=== PATIENT | female | born 2000 | race Hispanic/Latino ===

== ENCOUNTER 2021-05-12 17:49 | Inpatient (IN) | payer MEDICAID, OTHER ==
[~2021-05-12] VITALS: Ht 157.5 cm; Wt 130.2 kg
[2021-05-12 17:51] VITALS: BP 134/68
[2021-05-12 18:57] LABS: BASOPHILS % (AUTO) 0.2 % (0.0-5.0); LYMPHOCYTES % (AUTO) 10.6 % (21.0-51.0); MEAN CORPUSCULAR HEMOGLOBIN 25.3 pg (27.0-33.0); MEAN CORPUSCULAR HGB CONC 31.8 g/dL (32.0-36.0); MEAN CORPUSCULAR VOLUME 79.3 fL (79-99); MONOCYTES % (AUTO) 4.9 % (3.0-13.0); NEUTROPHILS % (AUTO) 83.7 % (40.0-77.0); PLATELET COUNT (AUTO) 334 K/uL (130-400); RED BLOOD CELL COUNT(AUTO) 4.79 MIL/uL (4.00-5.50); RED CELL DISTRIBUTION WIDTH 14.4 % (11.0-15.5); WHITE BLOOD COUNT (AUTO) 9.7 K/uL (4.8-10.8)
[2021-05-12 19:02] LABS: ABG BASE EXCESS 5.8 mmol/L (-2.0-3.0); ABG HCO3 28.7 mmol/L (21.0-28.0); ABG OXYGEN SATURATION 88.9 % (95.0-99.0); ABG PCO2 36 mmHg (32-45)
[2021-05-12 19:41] LABS: INR 1.05 (0.85-1.15); PROTHROMBIN TIME 11.4 SEC (9.6-11.6)
[2021-05-12 19:42] LABS: PARTIAL THROMBOPLASTIN TIME 28.3 SEC (26.3-35.5)
[2021-05-12 19:44] LABS: ALBUMIN 2.6 g/dL (3.5-5.0); BILIRUBIN,TOTAL 0.5 mg/dL (0.2-1.0); TOTAL PROTEIN, SERUM 7.9 g/dL (6.0-8.3)
[2021-05-12 19:46] LABS: POTASSIUM 2.9 mmol/L (3.5-5.1)
[2021-05-12] MEDS ORDERED: KCL 20 MEQ ERTAB PO ONE (20:30)
[2021-05-12 20:50] LABS: APPEARANCE,URINE Cloudy (CLEAR); BILIRUBIN,URINE Small (NEGATIVE); COLOR,URINE Dark Yellow (YELLOW); GLUCOSE, URINE (UA) Negative (NEGATIVE); KETONES,URINE 15 mg/dL (NEGATIVE); LEUKOCYTE ESTERASE ,URINE Small (NEGATIVE); NITRATE,URINE Negative (NEGATIVE); OCCULT BLOOD,URINE Large (NEGATIVE); PH,URINE 6.5 (5.0-8.0); PROTEIN,URINE POS 2+ mg/dL (NEGATIVE)
[2021-05-12 21:01] LABS: BACTERIA,URINE Moderate /HPF (None Seen); RBC,URINE 51-100 /HPF (0-1)
[2021-05-12 21:02] LABS: MUCUS,URINE Few LPF (None Seen); SQUAMOUS EPITHELIAL CELL,UR Moderate /HPF (0-2)
[2021-05-12 22:30] VITALS: BP 123/69
[2021-05-12] MEDS ORDERED: FAMOTIDINE 20MG VIAL IV ONE ×2 (22:30→23:47)
[2021-05-12] MEDS ORDERED: CEFTRIAXONE 1G VIAL 1 GM in 0.9%NACL 100ML 100 ML IV ONE (22:30)
[2021-05-12] MEDS ORDERED: DEXAMETHASONE SOD PHOSPHATE 4 MG/ML 1ML VIAL IVP ONE (22:30)
[2021-05-12] MEDS ORDERED: NITROGLYCERIN 0.4 MG SL TAB SL PRN (23:30)
[2021-05-12] MEDS ORDERED: 0.9% NACL 250ML IVPB SCH (23:30)
[2021-05-12] MEDS ORDERED: ACETAMINOPHEN 325 MG TAB PO PRN ×2 (23:30)
[2021-05-12] MEDS ORDERED: ONDANSETRON 4MG INJ IV PRN (23:30)
[2021-05-12] MEDS ORDERED: ERGOCALCIFEROL (VITAMIN D2) 50,000 UNIT CAPSULE PO ONE (23:30)
[2021-05-12] MEDS ORDERED: CEFTRIAXONE 1G VIAL ONE (23:47)
[2021-05-12] MEDS ORDERED: DEXAMETHASONE SOD PHOSPHATE 4 MG/ML 1ML VIAL ONE (23:47)
[2021-05-12] MEDS: AZITHROMYCIN 500MG+NS 250ML IV SCH (23:48)
[2021-05-13] VITALS (8 sets, daily range): BP systolic 117–146; BP diastolic 56–84
[2021-05-13] MEDS: IPRATROPIUM/ALBUTEROL SULFATE 3 ML SOLUTION IH SCH ×7 (00:01→22:44)
[2021-05-13 00:37] LABS: CREATINE KINASE, TOTAL 123 U/L (21-232); LACTATE DEHYDROGENASE 437 U/L (81-234); MYOGLOBIN 39 ng/mL (10-92); TROPONIN I < 0.04 ng/mL (0.00-0.06)
[2021-05-13] MEDS ORDERED: IOHEXOL-350 75 ML VIAL IV ONE (03:16)
[2021-05-13] MEDS ORDERED: FUROSEMIDE 40MG VIAL IV ONE (04:00)
[2021-05-13] MEDS ORDERED: SODIUM CHLORIDE 3% FOR INHALATION 4 ML/AMP VIAL.NEB IH ONE (06:35)
[2021-05-13 06:51] LABS: BASOPHILS % (AUTO) 0.1 % (0.0-5.0); EOSINOPHILS % (AUTO) 0.2 % (0.0-8.0); HEMATOCRIT 34.8 % (36-48); LYMPHOCYTES % (AUTO) 10.4 % (21.0-51.0); MEAN CORPUSCULAR HEMOGLOBIN 24.7 pg (27.0-33.0); MEAN CORPUSCULAR HGB CONC 31.6 g/dL (32.0-36.0); MEAN CORPUSCULAR VOLUME 78.2 fL (79-99); MONOCYTES % (AUTO) 5.5 % (3.0-13.0); NEUTROPHILS % (AUTO) 83.4 % (40.0-77.0); PLATELET COUNT (AUTO) 339 K/uL (130-400); RED BLOOD CELL COUNT(AUTO) 4.45 MIL/uL (4.00-5.50); RED CELL DISTRIBUTION WIDTH 14.5 % (11.0-15.5); WHITE BLOOD COUNT (AUTO) 9.7 K/uL (4.8-10.8)
[2021-05-13 07:05] LABS: ALBUMIN 2.6 g/dL (3.5-5.0); BILIRUBIN,TOTAL 0.5 mg/dL (0.2-1.0); POTASSIUM 3.1 mmol/L (3.5-5.1); TOTAL PROTEIN, SERUM 7.7 g/dL (6.0-8.3)
[2021-05-13 07:19] LABS: CRP QUANTITATIVE 166.1 mg/L (0.00-9.0)
[2021-05-13] MEDS ORDERED: ACETYLCYSTEINE 600 MG CAPSULE PO SCH (09:00)
[2021-05-13] MEDS: ENOXAPARIN SODIUM 40 MG/0.4 ML SYRINGE SQ SCH (09:00)
[2021-05-13] MEDS ORDERED: ASCORBIC ACID 500 MG TAB PO SCH (09:00)
[2021-05-13] MEDS ORDERED: ZINC SULFATE 220 CAPSULE PO SCH (09:00)
[2021-05-13] MEDS ORDERED: [UNRECOGNIZED DRUG - REMARK] MISC SCH (11:00)
[2021-05-13] MEDS: FAMOTIDINE 20MG TAB PO SCH ×2 (11:19→20:04)
[2021-05-13] MEDS ORDERED: [UNRECOGNIZED DRUG - OTHER] IV SCH (11:30)
[2021-05-13] MEDS ORDERED: TOCILIZUMAB IV SCH (11:30)
[2021-05-13] MEDS ORDERED: PHARMACY COMMUNICATION MISC SCH (11:30)
[2021-05-13] MEDS ORDERED: KCL 20 MEQ ERTAB PO PRN (12:00)
[2021-05-13] MEDS ORDERED: POTASSIUM CHLORIDE 20MEQ/100ML 100 ML IV PRN ×2 (12:00)
[2021-05-13] MEDS ORDERED: LIDOCAINE HCL-MPF 1% 2ML VIAL IV PRN (12:00)
[2021-05-13] MEDS ORDERED: BENZONATATE 100 MG CAPSULE PO PRN (12:00)
[2021-05-13] MEDS ORDERED: GUAIFENESIN-DM 200/20 MG 10 ML PO PRN (12:00)
[2021-05-13] MEDS ORDERED: GUAIFENESIN-CODEINE 5 ML SYRUP PO PRN (12:00)
[2021-05-13] MEDS ORDERED: PHARMACY COMMUNICATION**REMDESIVIR ORDER MISC SCH (13:00)
[2021-05-13] MEDS ORDERED: COMPOUND IV REFRIGERATED 1 EACH IVSOLN MISC PRN (14:30)
[2021-05-13] MEDS ORDERED: REMDESIVIR (EUA) 520 200 MG in 0.9% NACL 250ML 250 ML IV SCH (15:00)
[2021-05-13] MEDS: POTASSIUM CHLORIDE 10% ELIXIR 20 MEQ/15 ML UDCUP PO PRN ×2 (17:03→21:46)
[2021-05-13] MEDS: DEXAMETHASONE SOD PHOSPHATE 4 MG/ML 1ML VIAL IVP SCH (20:04)
[2021-05-13] MEDS: CEFTRIAXONE 2GM VIAL IVP SCH (20:04)
[2021-05-13] MEDS ORDERED: 0.9% NACL 250ML 250 ML ONE (22:54)
[2021-05-13] MEDS: AZITHROMYCIN 500MG+NS 250ML IV SCH (22:57)
[2021-05-14] MEDS: IPRATROPIUM/ALBUTEROL SULFATE 3 ML SOLUTION IH SCH ×6 (02:31→23:03)
[2021-05-14 04:00] VITALS: BP 103/59
[2021-05-14 04:04] LABS: BASOPHILS % (AUTO) 0.2 % (0.0-5.0); HEMATOCRIT 34.1 % (36-48); LYMPHOCYTES % (AUTO) 8.1 % (21.0-51.0); MEAN CORPUSCULAR HEMOGLOBIN 24.9 pg (27.0-33.0); MEAN CORPUSCULAR HGB CONC 31.7 g/dL (32.0-36.0); MEAN CORPUSCULAR VOLUME 78.8 fL (79-99); MONOCYTES % (AUTO) 1.7 % (3.0-13.0); NEUTROPHILS % (AUTO) 89.5 % (40.0-77.0); PLATELET COUNT (AUTO) 391 K/uL (130-400); RED BLOOD CELL COUNT(AUTO) 4.33 MIL/uL (4.00-5.50); RED CELL DISTRIBUTION WIDTH 14.5 % (11.0-15.5); WHITE BLOOD COUNT (AUTO) 6.7 K/uL (4.8-10.8)
[2021-05-14 04:37] LABS: ALBUMIN 2.5 g/dL (3.5-5.0); BILIRUBIN,TOTAL 0.3 mg/dL (0.2-1.0); CREATININE 0.8 mg/dL (0.5-1.5); CRP QUANTITATIVE 136.4 mg/L (0.00-9.0); POTASSIUM 3.5 mmol/L (3.5-5.1); TOTAL PROTEIN, SERUM 7.6 g/dL (6.0-8.3)
[2021-05-14 07:10] VITALS: BP 135/59
[2021-05-14] MEDS: REMDESIVIR LABS MISC SCH (07:56)
[2021-05-14] MEDS ORDERED: PHARMACY COMMUNICATION MISC SCH ×2 (09:30→10:30)
[2021-05-14] MEDS: FAMOTIDINE 20MG TAB PO SCH ×2 (09:53→20:24)
[2021-05-14] MEDS: ENOXAPARIN SODIUM 40 MG/0.4 ML SYRINGE SQ SCH (09:53)
[2021-05-14] MEDS ORDERED: TOCILIZUMAB 400MG VIAL 800 MG in 0.9%NACL 100ML 100 ML IV SCH (10:30)
[2021-05-14] MEDS: POTASSIUM CHLORIDE 10% ELIXIR 20 MEQ/15 ML UDCUP PO PRN (10:40)
[2021-05-14 11:00] VITALS: BP 118/56
[2021-05-14 16:00] VITALS: BP 125/66
[2021-05-14] MEDS: REMDESIVIR (EUA) 520 100 MG in 0.9% NACL 250ML 250 ML IV SCH (16:20)
[2021-05-14 20:00] VITALS: BP 131/71
[2021-05-14] MEDS: CEFTRIAXONE 2GM VIAL IVP SCH (20:24)
[2021-05-14] MEDS: DEXAMETHASONE SOD PHOSPHATE 4 MG/ML 1ML VIAL IVP SCH (20:24)
[2021-05-14] MEDS: AZITHROMYCIN 500MG+NS 250ML IV SCH (23:30)
[2021-05-15] VITALS (7 sets, daily range): BP systolic 112–150; BP diastolic 50–83
[2021-05-15] MEDS: IPRATROPIUM/ALBUTEROL SULFATE 3 ML SOLUTION IH SCH ×6 (02:32→22:43)
[2021-05-15 04:32] LABS: BASOPHILS % (AUTO) 0.2 % (0.0-5.0); HEMATOCRIT 33.6 % (36-48); LYMPHOCYTES % (AUTO) 9.8 % (21.0-51.0); MEAN CORPUSCULAR HEMOGLOBIN 24.8 pg (27.0-33.0); MEAN CORPUSCULAR HGB CONC 31.3 g/dL (32.0-36.0); MEAN CORPUSCULAR VOLUME 79.4 fL (79-99); MONOCYTES % (AUTO) 2.3 % (3.0-13.0); NEUTROPHILS % (AUTO) 86.9 % (40.0-77.0); PLATELET COUNT (AUTO) 429 K/uL (130-400); RED BLOOD CELL COUNT(AUTO) 4.23 MIL/uL (4.00-5.50); RED CELL DISTRIBUTION WIDTH 14.6 % (11.0-15.5); WHITE BLOOD COUNT (AUTO) 6.5 K/uL (4.8-10.8)
[2021-05-15 04:48] LABS: ALBUMIN 2.5 g/dL (3.5-5.0); BILIRUBIN,TOTAL 0.2 mg/dL (0.2-1.0); CREATININE 0.8 mg/dL (0.5-1.5); CRP QUANTITATIVE 71.1 mg/L (0.00-9.0); MAGNESIUM 2.4 mg/dL (1.80-2.40); TOTAL PROTEIN, SERUM 7.4 g/dL (6.0-8.3)
[2021-05-15] MEDS: REMDESIVIR LABS MISC SCH (05:34)
[2021-05-15] MEDS: FAMOTIDINE 20MG TAB PO SCH ×2 (08:03→21:04)
[2021-05-15] MEDS: ENOXAPARIN SODIUM 40 MG/0.4 ML SYRINGE SQ SCH (08:04)
[2021-05-15] MEDS: CEFDINIR 250MG/5ML 60ML BOTTLE PO SCH ×2 (09:54→21:05)
[2021-05-15] MEDS: REMDESIVIR (EUA) 520 100 MG in 0.9% NACL 250ML 250 ML IV SCH (14:28)
[2021-05-15] MEDS: DEXAMETHASONE SOD PHOSPHATE 4 MG/ML 1ML VIAL IVP SCH (21:03)
[2021-05-16] MEDS: IPRATROPIUM/ALBUTEROL SULFATE 3 ML SOLUTION IH SCH ×6 (02:39→21:51)
[2021-05-16 04:44] VITALS: BP 127/72
[2021-05-16 04:52] LABS: CRP QUANTITATIVE 40.7 mg/L (0.00-9.0)
[2021-05-16] MEDS: REMDESIVIR LABS MISC SCH (06:00)
[2021-05-16 06:05] LABS: BASOPHILS % (AUTO) 0.1 % (0.0-5.0); HEMATOCRIT 34.8 % (36-48); LYMPHOCYTES % (AUTO) 11.2 % (21.0-51.0); MEAN CORPUSCULAR HEMOGLOBIN 25.3 pg (27.0-33.0); MEAN CORPUSCULAR HGB CONC 31.9 g/dL (32.0-36.0); MEAN CORPUSCULAR VOLUME 79.3 fL (79-99); MONOCYTES % (AUTO) 2.6 % (3.0-13.0); NEUTROPHILS % (AUTO) 85.7 % (40.0-77.0); PLATELET COUNT (AUTO) 486 K/uL (130-400); RED BLOOD CELL COUNT(AUTO) 4.39 MIL/uL (4.00-5.50); RED CELL DISTRIBUTION WIDTH 14.6 % (11.0-15.5); WHITE BLOOD COUNT (AUTO) 7.3 K/uL (4.8-10.8)
[2021-05-16 06:20] LABS: ALBUMIN 2.6 g/dL (3.5-5.0); BILIRUBIN,TOTAL 0.2 mg/dL (0.2-1.0); CREATININE 0.8 mg/dL (0.5-1.5); POTASSIUM 4.2 mmol/L (3.5-5.1); TOTAL PROTEIN, SERUM 7.2 g/dL (6.0-8.3)
[2021-05-16] MEDS: CEFDINIR 250MG/5ML 60ML BOTTLE PO SCH ×2 (08:25→20:02)
[2021-05-16] MEDS: FAMOTIDINE 20MG TAB PO SCH ×2 (08:25→20:02)
[2021-05-16] MEDS: ENOXAPARIN SODIUM 40 MG/0.4 ML SYRINGE SQ SCH (08:26)
[2021-05-16 08:34] VITALS: BP 134/69
[2021-05-16 12:05] VITALS: BP 106/46
[2021-05-16] MEDS: REMDESIVIR (EUA) 520 100 MG in 0.9% NACL 250ML 250 ML IV SCH (13:08)
[2021-05-16 16:10] VITALS: BP 103/49
[2021-05-16] MEDS ORDERED: LOPERAMIDE HCL 2 MG CAP PO ONE (17:00)
[2021-05-16 19:50] VITALS: BP 131/77
[2021-05-16] MEDS: DEXAMETHASONE SOD PHOSPHATE 4 MG/ML 1ML VIAL IVP SCH (20:02)
[2021-05-16 23:28] VITALS: BP 124/67
[2021-05-17] MEDS: IPRATROPIUM/ALBUTEROL SULFATE 3 ML SOLUTION IH SCH ×2 (02:07→06:13)
[2021-05-17 03:51] VITALS: BP 109/51
[2021-05-17 05:05] LABS: MEAN CORPUSCULAR HEMOGLOBIN 25.3 pg (27.0-33.0); MEAN CORPUSCULAR HGB CONC 31.1 g/dL (32.0-36.0); MEAN CORPUSCULAR VOLUME 81.4 fL (79-99); RED BLOOD CELL COUNT(AUTO) 4.42 MIL/uL (4.00-5.50); RED CELL DISTRIBUTION WIDTH 14.9 % (11.0-15.5); WHITE BLOOD COUNT (AUTO) 7.5 K/uL (4.8-10.8)
[2021-05-17 05:30] LABS: CRP QUANTITATIVE 24.6 mg/L (0.00-9.0)
[2021-05-17 06:15] LABS: ALBUMIN 2.7 g/dL (3.5-5.0); BILIRUBIN,TOTAL 0.2 mg/dL (0.2-1.0); CREATININE 0.8 mg/dL (0.5-1.5); POTASSIUM 4.6 mmol/L (3.5-5.1); TOTAL PROTEIN, SERUM 7.1 g/dL (6.0-8.3)
[2021-05-17] MEDS: REMDESIVIR LABS MISC SCH (06:22)
[2021-05-17 08:46] VITALS: BP 118/56
[2021-05-17] MEDS: CEFDINIR 250MG/5ML 60ML BOTTLE PO SCH ×2 (09:23→21:11)
[2021-05-17] MEDS: ENOXAPARIN SODIUM 40 MG/0.4 ML SYRINGE SQ SCH (09:24)
[2021-05-17 12:45] VITALS: BP 123/55
[2021-05-17] MEDS: REMDESIVIR (EUA) 520 100 MG in 0.9% NACL 250ML 250 ML IV SCH (14:40)
[2021-05-17 16:46] VITALS: BP 119/63
[2021-05-17] MEDS ORDERED: DEXA6TAB PO (18:45)
[2021-05-17] MEDS ORDERED: APIX2.5T PO (18:45)
[2021-05-17 19:32] VITALS: BP 130/69
[2021-05-17] MEDS: DEXAMETHASONE SOD PHOSPHATE 4 MG/ML 1ML VIAL IVP SCH (20:33)
[2021-05-17 23:28] VITALS: BP 126/76
[2021-05-18 03:42] VITALS: BP 120/69
[2021-05-18 04:18] LABS: ALBUMIN 2.7 g/dL (3.5-5.0); BILIRUBIN,TOTAL 0.3 mg/dL (0.2-1.0); CREATININE 0.8 mg/dL (0.5-1.5); POTASSIUM 4.8 mmol/L (3.5-5.1); TOTAL PROTEIN, SERUM 7.1 g/dL (6.0-8.3)
[2021-05-18] MEDS: REMDESIVIR LABS MISC SCH (06:00)
[2021-05-18 07:00] VITALS: BP 124/58
[2021-05-18] MEDS: CEFDINIR 250MG/5ML 60ML BOTTLE PO SCH (08:52)
[2021-05-18] MEDS: ENOXAPARIN SODIUM 40 MG/0.4 ML SYRINGE SQ SCH (08:53)
[2021-05-18] MEDS ORDERED: DEXAMETHASONE 4 MG TAB PO SCH (09:00)
[2021-05-18 11:00] VITALS: BP 108/53
== END 2021-05-18 15:01 | disposition home or self-care (01) | DRG 871 ==
LOC: EDH 17:49 → EDHIP 17:50 → 2AH 05-13 08:13
PROVIDERS: ADMIT Internal Medicine; ATTEND Internal Medicine
PROC: XW033H5 Introduction of Tocilizumab into Peripheral Vein, Percutaneous Approach, New Technology Group 5 (ICD-10-PCS; principal; 2021-05-13)
PROC: XW033E5 Introduction of Remdesivir Anti-infective into Peripheral Vein, Percutaneous Approach, New Technology Group 5 (ICD-10-PCS; 2021-05-13)
PROC: 5A0945A Assistance with Respiratory Ventilation, 24-96 Consecutive Hours, High Flow/Velocity Cannula (ICD-10-PCS; 2021-05-13)
DX: A41.9 Sepsis, unspecified organism (principal); J12.82 Pneumonia due to coronavirus disease 2019; J81.0 Acute pulmonary edema; U07.1 COVID-19; J80 Acute respiratory distress syndrome; Z68.43 Body mass index [BMI] 50.0-59.9, adult; E44.0 Moderate protein-calorie malnutrition; D68.59 Other primary thrombophilia; N30.00 Acute cystitis without hematuria; R65.20 Severe sepsis without septic shock; E66.01 Morbid (severe) obesity due to excess calories; E87.6 Hypokalemia; B95.1 Streptococcus, group B, as the cause of diseases classified elsewhere; D72.810 Lymphocytopenia; I77.6 Arteritis, unspecified; Z83.3 Family history of diabetes mellitus; Z82.49 Family history of ischemic heart disease and other diseases of the circulatory system
CPT/HCPCS: 36415; 36600; 71045; 71275; 80053; 81001; 82550; 82728; 82803; 82948; 83605; 83615; 83735; 83874; 83880; 84145; 84484; 84703; 85025; 85027; 85378; 85610; 85730; 86140; 87040; 87071; 87088; 87205; 87635; 87637; 87804; 93005; 93306; 93356; 94640; 94664; 94760; C9803; G0378; J0456; J0696; J1100; J1650; J1940; J3490; J7050; J8540; Q9967